=== PATIENT | male | born 1950 | race Caucasian/White ===

== ENCOUNTER 2024-03-09 04:15 | Emergency (ER) | payer OTHER, SELFPAY ==
[2024-03-09 04:16] VITALS: BP 153/82; PULSE 94; RESP 18; TEMP 36.6; O2SAT 96; BMI 40.3
--- NOTE | 2024-03-09 04:22 | ED.VIS.CHEST ---
HPI History of Present Illness Chief Complaint: Chest Pain Informant: patient Onset/Context/Timing Onset: Today Activity at onset: sudden Timing: Continuous Quality: Positive for Heaviness and Pressure Location: Substernal Worsened By: Nothing Relieved By: Nothing Associated Symptoms: Positive for Cough, Lightheadedness, Acid Reflux and Palpitations; Negative for Nausea, Vomiting, Diaphoresis, Dyspnea or Fever Narrative Narrative: Patient presents with pain in his chest that began approximately 1-1/2 hours prior to arrival. Patient states the pain woke him up out of his sleep. Patient states that he sat up to look at the clock and then felt his defibrillator fire. Patient states that he has been unable to go back to sleep since that time. Patient describes his pain as heaviness and pressure. Patient states it is over the substernal area. Patient states it is constant. Patient states nothing makes it better nothing makes it worse. Patient admits to a cough. Patient also admits to some palpitations and lightheadedness. Patient denies any shortness of breath. Patient denies any diaphoresis. Patient denies any nausea or vomiting. CVD Risk Factors: Positive for Family History 1' </=55; Negative for Hypertension, Diabetes, Hypercholesterolemia or Smoking PE Risk Factors: Positive for Prior DVT or PE; Negative for Recent Travel/Surgery, Recent Immobilization, Cancer or OCP + Smoking + >/=35 [facility] Medical History (Updated 03/09/24 @ 07:[address] Tk Franco, DO) Presence of combination internal cardiac defibrillator (ICD) and pacemaker Cardiac disease Kidney disease Home Medications ?Medication ?Instructions ?Recorded ?Last Taken ?Type allopurinol 300 mg tablet 250 mg PO DAILY 03/09/24 Unknown History amiodarone 200 mg tablet 200 mg PO DAILY 03/09/24 Unknown History atorvastatin 20 mg tablet 20 mg PO DAILY 03/09/24 Unknown History clopidogrel 75 mg tablet 75 mg PO DAILY 03/09/24 Unknown History empagliflozin 25 mg tablet 12.5 mg PO DAILY 03/09/24 Unknown History ferrous sulfate 325 mg (65 mg 325 mg PO DAILY 03/09/24 Unknown History iron) tablet (FeroSul) furosemide 40 mg tablet 20 mg PO DAILY 03/09/24 Unknown History levothyroxine 25 mcg tablet 25 mcg PO DAILY 03/09/24 Unknown History metoprolol succinate 25 mg 25 mg PO BID 03/09/24 Unknown History tablet,extended release 24 hr midodrine 5 mg tablet 5 mg PO TID 03/09/24 Unknown History Allergy/AdvReac Type Severity Reaction Status Date / Time No Known Allergies Allergy Verified 03/09/24 04:22 Surgical History (Updated 03/09/24 @ 04:[address] Tk Franco DO) Hx of cholecystectomy Hx of CABG Social History Smoking Status: Former smoker ROS ROS ED Constitutional Constitutional ED: Denies chills or fever(s) Eyes Eyes: Denies blurry vision or change in vision ENT ENT ED: Denies rhinorrhea or sore throat Cardiovascular Cardiovascular: Reports chest pain and palpitations Respiratory/Chest Respiratory/Chest: Reports cough; Denies dyspnea Gastrointestinal Gastrointestinal: Denies nausea or vomiting Genitourinary Genitourinary ED: Denies dysuria or hematuria Musculoskeletal Musculoskeletal: Reports back pain; Denies neck pain Integumentary Reports rash; Denies abscess Neurologic Neurologic: Denies headache(s) or weakness Allergic/Immunologic Allergic/Immunologic ED: Denies mouth swelling or urticaria EXAM Physical Exam Const Vital Signs: 03/09/24 04:16 03/09/24 04:25 03/09/24 04:51 Temperature 97.8 F Temperature Source Oral Pulse Rate 94 Respiratory Rate 18 Respiratory Effort Normal Blood Pressure 153/82 H Blood Pressure Mean 105 Pulse Ox 96 Oxygen Delivery Method Room Air Room Air 03/09/24 05:15 03/09/24 06:00 03/09/24 07:00 Temperature Temperature Source Pulse Rate 80 70 85 Respiratory Rate 12 24 H 16 Respiratory Effort Blood Pressure 149/74 H 126/84 H 122/69 H Blood Pressure Mean 99 98 86 Pulse Ox 97 98 91 Oxygen Delivery Method Room Air Room Air Room Air Positive well nourished and well developed General Appearance ED: well developed and NAD HEENT Reports moist mucous membranes Neck supple and no JVD Resp normal respiratory effort and clear to auscultation bilaterally Cardio regular rate and regular rhythm Rhythm: abnormal rhythm ectopic beats GI soft to palpation and non-distended GI Narrative: There is mild diffuse tenderness. There is no rebound or guarding noted. Extremity General Extremety ED: Negative for edema or tenderness General Extremity: Negative for edema Neuro oriented x3, CN's II-XII intact bilaterally and no sensory deficits noted Sensorium / Orientation: awake Motor Exam: strength 5/5 throughout Psych mental status grossly normal MDM MDM MDM Narrative Medical decision making narrative: Differential diagnosis includes coronary artery disease, cardiac dysrhythmia, cardiac ischemia, pneumonia, pneumothorax, congestive heart failure, pulmonary embolism, and musculoskeletal pain. EKG will be obtained to assess for cardiac dysrhythmia and cardiac ischemia. Chest x-ray will be obtained to assess for pneumonia, congestive heart failure, and pneumothorax. CBC will be obtained to assess for leukocytosis and anemia. Basic metabolic profile will be obtained to assess for electrolyte abnormality and renal function. High-sensitivity troponin will be obtained to assess for cardiac ischemia. 2-hour repeat high-sensitivity troponin will be obtained to assess for ongoing cardiac ischemia. D-dimer will be obtained to assess for pulmonary embolism. PT with INR and PTT will be obtained to assess for coagulopathy. Lab Data Attestation: I reviewed the patient's lab results. Lab results narrative: CBC was reviewed. There is a slight leukocytosis of 11.1. The remainder is within normal limits. Basic metabolic profile was reviewed. BUN was slightly elevated at 42 and creatinine was slightly elevated at 2.06. Serum magnesium was reviewed and was normal at 2.0. Initial high-sensitivity troponin was reviewed and was normal at 19. BNP was reviewed and was slightly elevated to 21.1. PT with INR and PTT were reviewed. Pro time was 15.5 and INR is 1.2. PTT was normal at 28.5. D-dimer was reviewed and was elevated at 1.1. 2-hour repeat high-sensitivity troponin was reviewed and was normal at 19. Labs: Laboratory Results - last 24 hr 03/09/24 03/09/24 03/09/24 04:25 05:05 06:23 WBC 11.1 H RBC 4.69 Hgb 14.1 Hct 45.4 MCV 96.8 H MCH 30.1 MCHC 31.1 L RDW Std Deviation 58.6 H RDW Coeff of Ricky 16.5 H Plt Count 215 MPV 10.8 Immature Gran % (Auto) 0.500 Neut % (Auto) 67.6 Lymph % (Auto) 19.0 [place] % (Auto) 10.3 H Eos % (Auto) 1.8 Baso % (Auto) 0.8 Absolute Neuts (auto) 7.5 Absolute Lymphs (auto) 2.10 Nucleated RBC % 0 PT Cancelled 15.5 H INR Cancelled 1.2 APTT Cancelled 28.5 D-Dimer Quant (PE/DVT) Cancelled 1.10 H* Sodium 143 Potassium 4.1 Chloride 112 H Carbon Dioxide 25.0 Anion Gap 6 BUN 42 H Creatinine 2.06 H Estim Creat Clear Calc 44.75 Est GFR (MDRD) Af Amer 41 L Est GFR (MDRD) Non-Af 34 L BUN/Creatinine Ratio 20.4 H Glucose 112 H Calcium 8.9 Magnesium 2.0 Troponin I High Sens 19 19 B-Natriuretic Peptide 221.1 H Radiography Diagnostic Testing: Clinical Impression(s) from Imaging Studies Chest X-Ray 03/09/24 05:05 IMPRESSION: There is small left pleural effusion. There is a large hiatal hernia. Electronically Signed: Hardik Núñez MD at 5:25 EDT , Chest CTA 03/09/24 05:48 IMPRESSION: 1. No evidence for pulmonary embolism, aortic aneurysm, or aortic dissection. 2. No evidence for acute cardiopulmonary pathology. 3. Atherosclerosis. 4. Pacemaker. Electronically Signed: Severino Shaver MD at 7:47 EDT , Portable 1 view chest x-ray was obtained. On my independent interpretation, lung plata are clear. There is normal cardiac silhouette. Bony thorax is normal. There is no acute process noted. Radiologist also interpreted the x-ray and agrees. Because of the elevated D-dimer, CTA of the chest was obtained. There is no evidence of pulmonary embolism or aortic dissection. This was interpreted by the radiologist was also dependently reviewed by myself. EKG Initial EKG: Attestation: I personally reviewed and interpreted this EKG as follows: Interpretation: Paced (80 with frequent PVCs), RBBB and Non-Specific ST Changes Comments: EKG was obtained. On my independent interpretation, it shows a paced rhythm with a rate of 80. MO interval was normal at 128 ms. QRS interval is prolonged at 148 ms. QTc interval was 500 ms. There is left axis deviation at -53. There are frequent PVCs noted. There is a right bundle branch block pattern noted. There are no prior EKGs available for comparison. Treatment and Re-Evaluation :: Patient was given aspirin here. Patient is feeling better on reevaluation. Patient was advised of his findings. Patient states he would prefer to go home. Patient states he is visiting from out of town. Patient states that he is feeling much better and no longer has any chest pain. 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 Patient understood and was agreeable with the plan. All questions were answered. Discharge Plan Triage Chief Complaint: Chest Pain ED Provider: Tk Franco Dx/Rx/DC Orders Clinical Impression: Chest pain, Implantable cardioverter-defibrillator (ICD) discharge Instructions: ED Chest Pain, Uncertain Cause Prescriptions: No Action midodrine 5 mg tablet 5 mg PO TID clopidogrel 75 mg tablet 75 mg PO DAILY empagliflozin 25 mg tablet 12.5 mg PO DAILY metoprolol succinate 25 mg tablet extended release 24 hr 25 mg PO BID ferrous sulfate [FeroSul] 325 mg (65 mg iron) tablet 325 mg PO DAILY allopurinol 300 mg tablet 250 mg PO DAILY atorvastatin 20 mg tablet 20 mg PO DAILY amiodarone 200 mg tablet 200 mg PO DAILY furosemide 40 mg tablet 20 mg PO DAILY levothyroxine 25 mcg tablet 25 mcg PO DAILY Primary Care Provider: ZHOU COWAN Referrals: ZHOU COWAN [Other] - 3-5 Days Print Language: Mongolian Disposition Disposition: Home, Self Care
--- NOTE | 2024-03-09 04:47 | EKG12_ITS ---
Test Reason : CHEST HEAVINESS Blood Pressure : / mmHG Vent. Rate : 080 BPM Atrial Rate : 057 BPM P-R Int : 128 ms QRS Dur : 148 ms QT Int : 434 ms P-R-T Axes : -04 -53 076 degrees QTc Int : 500 ms Sinus bradycardia with frequent ventricular-paced complexes and with occasional Premature ventricular complexes Left axis deviation Right bundle branch block Inferior infarct , age undetermined Abnormal ECG Confirmed by EBENEZER OTTO, ROSITA ([id number]), assistant editor JUAN WAHL ([id number]) on 03/10/2024 11:32:17 AM Referred By: MARITZA Confirmed By:ROSITA SOL MD
[2024-03-09 04:56] LABS: Absolute Neutrophil Count 7.5 X10^3/uL (2.0-7.7); Basophil# 0.09 X10^3/uL; Basophil% 0.8 % (0-1); Eosinophils% 1.8 % (0-5); Hematocrit 45.4 % (40-54); Hemoglobin 14.1 g/dL (13.0-16.5); Mean Corp Hgb Conc 31.1 g/dL (32-36); Mean Corpuscular Hgb 30.1 pg (27.0-32.0); Mean Corpuscular Volume 96.8 fL (80-94); Mean Platelet Vol. 10.8 fl (6.2-12.0); Monocyte# 1.14 X10^3/uL; Monocyte% 10.3 % (0-10); NRBC Flagged by Analyzer 0 % (0-5); Neutrophil # 7.46 X10^3/uL (2.7-7.7); Neutrophil % 67.6 % (47-70); Platelet Count 215 K/mm3 (150-450); RBC Distribution Width CV 16.5 % (11.6-14.6); RBC Distribution Width SD 58.6 fl (35.1-43.9); Red Blood Count 4.69 M/mm3 (4.6-6.2); White Blood Count 11.1 K/mm3 (4.4-11.0)
--- NOTE | 2024-03-09 05:05 | RAD_ITS ---
INDICATION: chest pain EXAMINATION/TECHNIQUE: X-RAY - XR Chest 1 View COMPARISON: No relevant prior comparison study available FINDINGS: LINES/DEVICES: Pacemaker on the left. LUNGS: There is small left pleural effusion. MEDIASTINUM AND CARDIOVASCULAR STRUCTURES: Cardiac silhouette not enlarged. Central airways and mediastinal contour are unremarkable. BONES AND SOFT TISSUES: There is a large hiatal hernia. RAD/Chest 1 View (Portable) IMPRESSION: There is small left pleural effusion. There is a large hiatal hernia. Electronically Signed: Hardik Núñez MD at 5:25 EDT ,
[2024-03-09 05:15] VITALS: BP 149/74; PULSE 80; RESP 12; O2SAT 97
[2024-03-09] MEDS: Aspirin 81 MG TAB.CHEW 324 MG PO (05:17)
[2024-03-09 05:23] LABS: International Normalized Ratio 1.2; Prothrombin Time (Protime)PT. 15.5 SECONDS (11.7-14.9)
[2024-03-09 05:24] LABS: Partial Thromboplast Time 28.5 Seconds (24.1-36.2)
[2024-03-09 05:25] LABS: Anion Gap 6 (5-15); BUN 42 mg/dL (7-18); BUN/Creat Ratio 20.4 RATIO (10-20); Calcium,Total 8.9 mg/dL (8.5-10.1); Chloride 112 mmol/L (98-107); Creatinine, Serum 2.06 mg/dL (0.70-1.30); EST Glomerular Filtration Rate 34 mL/min (>60); Est Glom Filt Rate - Afr Amer 41 mL/min (>60); Estimated Creatinine Clearance 44.75 ml/min; Glucose 112 mg/dL (74-106); Potassium 4.1 mmol/L (3.5-5.1); Sodium Level 143 mmol/L (136-145); Troponin-I HS (w/2H Reflex) 19 pg/mL (3.0-78.0)
[2024-03-09 05:38] LABS: BNP,B-Type NATRIURETIC PEPTIDE 221.1 pg/mL (0-100)
--- NOTE | 2024-03-09 05:48 | CT_ITS ---
EXAM: CT ANGIOGRAPHY CHEST WITHOUT AND WITH INTRAVENOUS CONTRAST CLINICAL INDICATION: elevated d-dimer elevated d-dimer TECHNIQUE: Helically acquired angiography images were obtained of the chest without and with intravenous contrast. This CT exam was performed using one or more of the following dose reduction techniques: automated exposure control, adjustment of the mA and/or kV according to patient size, and/or use of iterative reconstruction technique. MIP reconstructed images were created and reviewed. CONTRAST: IV 100mL [id number] RADIATION DOSE: CTDIvol = 13.85 mGy, DLP = 586.16 mGy-cm COMPARISON: Chest x-ray 03/09/2024. FINDINGS: PULMONARY ARTERIES: Unremarkable. Normal in caliber. No evidence of pulmonary embolism. AORTA: There is mild atherosclerotic calcification of the thoracic aorta. Normal in caliber. No evidence of dissection. GREAT VESSELS OF AORTIC ARCH: Unremarkable. Normal in caliber. No evidence of dissection. LUNGS AND PLEURAL SPACES: Unremarkable. No mass. No consolidation or edema. No pleural effusion or thickening. No pneumothorax. HEART: There are coronary artery calcifications. There are sternotomy wires and surgical clips suggesting previous CABG. Heart size is normal. No pericardial effusion. MEDIASTINUM: Unremarkable. No mediastinal or hilar adenopathy. Esophagus is unremarkable. No hiatal hernia. THYROID: Unremarkable. No thyroid lesions. BONES/JOINTS: There are multilevel degenerative changes in the visualized spine. No suspicious lytic or blastic abnormality. GALLBLADDER AND BILE DUCTS: There is evidence for previous cholecystectomy. KIDNEYS AND URETERS: There are simple appearing renal cysts. No follow-up imaging is necessary for simple renal cysts or cysts that are too small to characterize. TUBES, LINES AND DEVICES: There is an atrioventricular pacemaker/defibrillator. CT/CTA Chest W/WO Contrast IMPRESSION: 1. No evidence for pulmonary embolism, aortic aneurysm, or aortic dissection. 2. No evidence for acute cardiopulmonary pathology. 3. Atherosclerosis. 4. Pacemaker. Electronically Signed: Severino Shaver MD at 7:47 EDT ,
[2024-03-09 06:00] VITALS: BP 126/84; PULSE 70; RESP 24; O2SAT 98
[2024-03-09 06:53] LABS: Reflex Troponin-HS? (from REC) Y
[2024-03-09 07:00] VITALS: BP 122/69; PULSE 85; RESP 16; O2SAT 91
[2024-03-09 07:24] LABS: Troponin-I HS 19 pg/mL (3.0-78.0)
[2024-03-09 08:00] VITALS: BP 122/78; PULSE 82; RESP 16; O2SAT 97
[2024-03-09 08:06] VITALS: BP 122/78; PULSE 82; RESP 16; TEMP 36.4; O2SAT 98
== END 2024-03-09 08:08 | disposition home or self-care (01) ==
PROVIDERS: Emergency Provider Emergency Medicine; Visit Provider Emergency Medicine
DX: R07.9 Chest pain, unspecified (principal); Z95.810 Presence of automatic (implantable) cardiac defibrillator; Z79.899 Other long term (current) drug therapy; Z79.01 Long term (current) use of anticoagulants; Z95.1 Presence of aortocoronary bypass graft; Z87.891 Personal history of nicotine dependence
CPT/HCPCS: 71045; 71275; 80048; 83735; 83880; 84484; 85025; 85379; 85610; 85730; 93005; 99283; Q9967; A4216